=== PATIENT | female | born 1970 | race Caucasian/White ===

== ENCOUNTER 2016-07-24 01:05 | Emergency (ER) | payer OTHER ==
[~2016-07-24 01:05] MED LIST: BACTRIM DS TABL1 TA1 PO; CLARITIN10 MG PO; IBUPROFEN PO; NEOMYCIN/POLY/7.5 ML OP; PYRIDIUM PO; ULTRAM PO
[2016-07-24 01:36] LABS: URINE SOURCE CLEAN CATCH
[2016-07-24 01:43] LABS: URINE BILIRUBIN NEG (NEG); URINE BLOOD NEG (NEG); URINE GLUCOSE NORM (NORM); URINE KETONE NEG (NEG); URINE LEUKOCYTE ESTERASE NEG (NEG); URINE NITRATE NEG (NEG); URINE PROTEIN NEG (NEG); URINE SPECIFIC GRAVITY 1.025 (1.003-1.035); URINE UROBILINOGEN NORM (NORM)
[2016-07-24 01:44] LABS: URINE APPEARANCE CLEAR; URINE COLOR YELLOW
[2016-07-24 01:52] LABS: CULTURE INDICATED? NO
== END 2016-07-24 02:41 | disposition home or self-care (01) ==
LOC: CED 01:05
PROVIDERS: Emergency Medicine
DX: R30.0 Dysuria (principal); Z98.51 Tubal ligation status; Z88.6 Allergy status to analgesic agent; Z88.8 Allergy status to other drugs, medicaments and biological substances
CPT/HCPCS: 81003; 99284

== ENCOUNTER 2016-07-29 23:25 | Emergency (ER) | payer OTHER | END 2016-07-30 02:05 | disposition home or self-care (01) | LOC: SED 23:25 | DX: G43.909 Migraine, unspecified, not intractable, without status migrainosus (principal); F17.210 Nicotine dependence, cigarettes, uncomplicated; Z98.51 Tubal ligation status; Z88.8 Allergy status to other drugs, medicaments and biological substances | CPT/HCPCS: 96361; 96374; 96375; 99284; J0780; J1200; J1885; J2405 ==

== ENCOUNTER 2016-08-22 20:40 | Emergency (ER) | payer OTHER | END 2016-08-22 20:45 | disposition home or self-care (01) | LOC: CFTX 20:40 | DX: S43.492A Other sprain of left shoulder joint, initial encounter (principal); F17.210 Nicotine dependence, cigarettes, uncomplicated; X50.0XXA Overexertion from strenuous movement or load, initial encounter; Y93.89 Activity, other specified; Y92.69 Other specified industrial and construction area as the place of occurrence of the external cause; Y99.0 Civilian activity done for income or pay | CPT/HCPCS: 99283; J1885 ==